=== PATIENT | female | born 2000 | race Caucasian/White ===

== ENCOUNTER 2022-04-17 19:22 | Emergency (ER) | payer MEDICAID ==
--- NOTE | 2022-04-17 19:35 | ERPHSYRPT ---
- History of Present Illness Time Seen by Provider: 04/17/22 20:25 Source: patient Exam Limitations: no limitations Physician History: This is a 21-year-old white female patient who had no known drug allergies prior to taking Augmentin today for the first time. Patient states that she was given Augmentin to treat a urinary tract infection and within half hour after ingestion of the Augmentin medication, she began having a rash on her arms and had generalized itching. She denies any cough or swollen tongue or any respiratory issues. Patient did not take any Benadryl or any other intervention to help improve her symptoms. She presents to the emergency department with a room air oxygenation level of 99 to 100% without wheezing or difficulty breathing. Timing/Duration: today Severity: mild (To moderate) Associated Symptoms: rash, No shortness of breath, No cough, No chest pain Allergies/Adverse Reactions: amoxicillin [From Augmentin] Allergy (Intermediate, Verified 04/17/22 20:41) Hives clavulanic acid [From Augmentin] Allergy (Intermediate, Verified 04/17/22 20:41) Hives Travel Risk - International Travel Have you traveled outside of the country in past 3 weeks: No - Coronavirus Screening Are you exhibiting any of the following symptoms?: No Close contact with a COVID-19 positive Pt in past 14-21 Days: No - Review of Systems Constitutional: No Symptoms Eyes: No Symptoms Ears, Nose, & Throat: No Symptoms Respiratory: No Symptoms Cardiac: No Symptoms Abdominal/Gastrointestinal: No Symptoms Genitourinary Symptoms: No Symptoms Musculoskeletal: No Symptoms Skin: Rash (Mild generalized punctate rash bilateral upper extremities) Neurological: No Symptoms Psychological: No Symptoms Endocrine: No Symptoms Hematologic/Lymphatic: No Symptoms Immunological/Allergic: No Symptoms All Other Systems: Reviewed and Negative - Past Medical History Pertinent Past Medical History: No - Past Surgical History Past Surgical History: No - Nursing Vital Signs Nursing Vital Signs: Initial Vital Signs Temperature 98.5 F 04/17/22 20:31 Pulse Rate 102 H 04/17/22 20:31 Respiratory Rate 16 04/17/22 20:31 Blood Pressure 123/85 04/17/22 20:31 O2 Sat by Pulse Oximetry 100 04/17/22 20:31 Pain Scale Pain Intensity 0 - Physical Exam General Appearance: no apparent distress, alert, anxiety Eye Exam: PERRL/EOMI Ears, Nose, Throat Exam: normal ENT inspection, moist mucous membranes Neck Exam: normal inspection, non-tender, supple, full range of motion Respiratory Exam: normal breath sounds, lungs clear, airway intact, No chest tenderness, No respiratory distress Cardiovascular Exam: regular rate/rhythm, normal heart sounds, normal peripheral pulses Gastrointestinal/Abdomen Exam: soft, normal bowel sounds, No tenderness Pelvic Exam: not done Rectal Exam: not done Back Exam: normal inspection Extremity Exam: normal inspection, normal range of motion, pelvis stable Neurologic Exam: alert, oriented x 3, cooperative, 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 tested, normal mood/affect, nml cerebellar function, nml station & gait Skin Exam: rash (Mild pink punctate rash bilateral upper extremities) Lymphatic Exam: No adenopathy SpO2 Interpretation: normal O2 Delivery: Room Air - Course Nursing assessment & vital signs reviewed: Yes Ordered Tests: Medication Summary Discontinued Medications Generic Name Dose Route Start Last Admin Trade Name Freq PRN Reason Stop Dose Admin Methylprednisolone Sodium 0 mg 04/17/22 20:45 Succinate 125 mg/ Sterile IM 04/17/22 20:46 Water 2 ml STAT ONE Diphenhydramine HCl 50 mg 04/17/22 20:45 Diphenhydramine Hcl 25 Mg Capsule PO 04/17/22 20:46 STAT ONE Diphenhydramine HCl Confirm 04/17/22 21:04 Diphenhydramine Hcl 25 Mg Capsule Administered 04/17/22 21:05 Dose 50 mg .ROUTE .STK-MED ONE Famotidine 40 mg 04/17/22 20:45 Famotidine 20 Mg Tablet PO 04/17/22 20:46 STAT ONE Famotidine Confirm 04/17/22 21:03 Famotidine 20 Mg Tablet Administered 04/17/22 21:04 Dose 40 mg .ROUTE .STK-MED ONE Methylprednisolone Sodium Succinate Confirm 04/17/22 21:04 Methylprednis Sod Succ 125 Mg/2 Ml Vial Administered 04/17/22 21:05 Dose 125 mg .ROUTE .STK-MED ONE Sterile Water Confirm 04/17/22 21:03 Water For Injection,Sterile 10 Ml Vial Administered 04/17/22 21:04 Dose 10 ml IJ .STK-MED ONE Trimethoprim/Sulfamethoxazole 1 tab 04/17/22 20:46 Smz/Tmp Ds Tablet 1 Tablet PO 04/17/22 20:47 STAT ONE Trimethoprim/Sulfamethoxazole Confirm 04/17/22 21:03 Smz/Tmp Ds Tablet 1 Tablet Administered 04/17/22 21:04 Dose 1 tab PO .STK-MED ONE - Progress Progress: improved Counseled pt/family regarding: diagnosis, need for follow-up - Departure Departure Disposition: Home Clinical Impression: Allergic reaction caused by a drug Condition: Stable Critical Care Time: No Additional Instructions: Stop taking the Augmentin. Take your new medications as prescribed. In addition, take Benadryl 25 mg orally 3 times a day for the next 4 days. Follow- up with your primary care provider for further evaluation and management. Prescriptions: Smz/Tmp Ds Tablet [Bactrim Ds Tablet] 1 udtab PO BID #14 tablet Prednisone 10 mg [Deltasone 10 mg] 10 mg PO TID #12 tablet Famotidine 20 mg [Pepcid 20 MG] 20 mg PO DAILY #10 tablet
[2022-04-17] MEDS ORDERED: BENADRYL 25 MG CAPSULE PO ONE (20:45)
[2022-04-17] MEDS ORDERED: Pepcid 20 MG PO ONE (20:45)
[2022-04-17] MEDS ORDERED: solu-MEDROL 125 MG, Sterile H2O 10 ml 2 ML IM ONE ×2 (20:45)
[2022-04-17] MEDS ORDERED: BACTRIM DS TABLET PO ONE ×2 (20:46→21:03)
[2022-04-17] MEDS ORDERED: Sterile H2O 10 ml IJ ONE (21:03)
[2022-04-17] MEDS ORDERED: Pepcid 20 MG ONE (21:03)
[2022-04-17] MEDS ORDERED: BENADRYL 25 MG CAPSULE ONE (21:04)
[2022-04-17] MEDS ORDERED: solu-MEDROL ONE (21:04)
[2022-04-17 21:13] VITALS: BP 119/71; PULSE 117; O2SAT 98
== END 2022-04-17 21:27 | disposition home or self-care (01) ==
LOC: ED 19:22
DX: L27.0 Generalized skin eruption due to drugs and medicaments taken internally (principal); T36.0X5A Adverse effect of penicillins, initial encounter; T36.1X5A Adverse effect of cephalosporins and other beta-lactam antibiotics, initial encounter; Z79.52 Long term (current) use of systemic steroids
CPT/HCPCS: 96372; 99283; J2930; A9270-GY